=== PATIENT | female | born 1990 | race African-American/Black ===

== ENCOUNTER 2020-12-06 21:09 | Emergency (ER) | payer OTHER, SELFPAY ==
[2020-12-06 21:12] VITALS: BP 133/83; PULSE 80; RESP 18; TEMP 36.1; O2SAT 100; BMI 25.8
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
== END 2020-12-06 21:55 | disposition home or self-care (01) ==
PROVIDERS: Emergency Provider Emergency Medicine
DX: S09.93XA Unspecified injury of face, initial encounter (principal); R51.9 Headache, unspecified; Y04.8XXA Assault by other bodily force, initial encounter; Y93.9 Activity, unspecified; Y92.239 Unspecified place in hospital as the place of occurrence of the external cause; Y99.0 Civilian activity done for income or pay
CPT/HCPCS: 99283

== ENCOUNTER → 2020-12-15 11:12 | Outpatient (BNVA) | payer SELFPAY | DX: Z20.822 Contact with and (suspected) exposure to COVID-19 (principal) | CPT/HCPCS: 36415; 87635 ==